=== PATIENT | female | born 1970 | race Caucasian/White ===

== ENCOUNTER 2016-10-14 10:34 | Emergency (ER) | payer BC ==
[~2016-10-14] VITALS: Ht 157.5 cm; Wt 55.8 kg
--- NOTE | 2016-10-14 11:02 | EKG ---
[facility] [address] [place] [address] Test Date: 2016-10-14 Test Time: 10:39:10 Pat Name: CHANA WEN Department: Room: Gender: F [employer]: : 1970 Requested By: David VAUGHAN Order Number: [id number] Reading MD: Ángela Guzman Measurements Intervals [place] Rate: 76 P: 17 UT: 140 QRS: -41 QRSD: 96 T: 54 QT: 410 QTc: 466 Interpretive Statements SINUS RHYTHM LEFT ATRIAL ABNORMALITY LEFT ANTERIOR FASCICULAR BLOCK INCOMPLETE RIGHT BUNDLE BRANCH BLOCK QRS(T) CONTOUR ABNORMALITY CONSISTENT WITH ANTEROLATERAL INFARCT AGE UNDETERMINED RI6.01 Unconfirmed report No previous ECG available for comparison Electronically Signed On 10-16-2016 17:19:48 CDT by Ángela Guzman
[2016-10-14 11:16] LABS: BASO # 0.1 x10^3/uL (0.0-0.2); BASO % 1 % (0-3); EOS % 2 % (0-3); HEMATOCRIT 34.7 % (36.0-47.0); HEMOGLOBIN 11.5 g/dL (12.0-15.5); LYMPH # 1.5 x10^3/uL (1.0-4.8); LYMPH % 14 % (24-48); MEAN CORPUSCULAR HEMOGLOBIN 29 pg (25-35); MEAN CORPUSCULAR HGB CONC 33 g/dL (31-37); MEAN CORPUSCULAR VOLUME 87 fL (79-100); MONO % 5 % (0-9); NEUT % 79 % (31-73); PLATELET COUNT 216 x10^3/uL (140-400); RED BLOOD COUNT 4.02 x10^6/uL (3.50-5.40); RED CELL DISTRIBUTION WIDTH 15.8 % (11.5-14.5); WHITE BLOOD COUNT 10.3 x10^3/uL (4.0-11.0)
--- NOTE | 2016-10-14 11:16 | PHYS DOC ---
Past Medical History Past Medical History: CHF (EF 20-25%), [place], Seizure, Other Additional Past Medical Histor: ANEURSYM BEHIND R EYE,LUPUS Past Surgical History: Other Additional Past Surgical Histo: CARDIAC STENTS X 2 Additional Information: 0.5 PPD Alcohol Use: Occasionally Drug Use: Marijuana Adult General Chief Complaint Chief Complaint: SEIZURE HPI HPI Patient is a 46 year old female who presents by EMS for seizure-like activity witnessed by bystanders at work. She was a standing height when she feel down and had jerking activity that is not described well. She was noted to be confused during EMS transport but made it back to mental baseline by the time she arrived here. She initially stated to EMS that she had a seizure prior, but now that she is at her mental baseline states this was the wrong statement. She states she has never had a seizure before. States she was recently diagnosed 4 days ago with ejection fraction of 20-25% by echocardiogram at [facility]. States they were considering placing a pacer/ICD. 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 She currently denies chest pain, headache, neck pain, vision changes, dizziness, numbness, tingling, weakness, dyspnea, diaphoresis, palpitations, nausea or vomiting, fever or chills, abdominal pain, diarrhea, injury. Review of Systems Review of Systems Constitutional: Denies fever or chills [] Eyes: Denies change in visual acuity, redness, or eye pain [] HENT: Denies nasal congestion or sore throat [] Respiratory: Denies cough or shortness of breath [] Cardiovascular: No additional information not addressed in HPI [] GI: Denies abdominal pain, nausea, vomiting, bloody stools or diarrhea [] : Denies dysuria or hematuria [] Musculoskeletal: Denies back pain or joint pain [] Integument: Denies rash or skin lesions [] Neurologic: Denies headache, focal weakness or sensory changes [] Endocrine: Denies polyuria or polydipsia [] Allergies Allergies Allergies Coded Allergies Type Severity Reaction Last Updated Verified No Known Drug Allergies 10/14/16 No Physical Exam Physical Exam Constitutional: Well developed, well nourished, no acute distress, non-toxic appearance. [] HENT: Normocephalic, atraumatic, bilateral external ears normal, oropharynx moist, nose normal. [] Eyes: PERRLA, EOMI. [] Neck: Normal range of motion, no tenderness, supple, no stridor. [] Cardiovascular:Heart rate regular rhythm [] Lungs & Thorax: Bilateral breath sounds clear to auscultation [] Abdomen: Bowel sounds normal, soft, no tenderness. [] Skin: Warm, dry, no erythema, no rash. [] Back: Normal range of motion, nontender. [] Extremities: No tenderness, ROM intact, no edema. [] Neurologic: Alert and oriented X 3, normal motor function, normal sensory function, no focal deficits noted, cranial nerves II through XII intact. [] Psychologic: Affect normal, judgement normal, mood normal. [] Current Patient Data Vital Signs Vital Signs Date Time Temp Pulse Resp B/P Pulse Ox O2 Delivery O2 Flow Rate FiO2 10/14/16 12:00 72 102/65 98 Room Air 10/14/16 10:44 98 18 98.0 Lab Values Laboratory Tests Test 10/14/16 10:45 10/14/16 12:20 White Blood Count 10.3x10^3/uL (4.0-11.0) Red Blood Count 4.02x10^6/uL (3.50-5.40) Hemoglobin 11.5g/dL (12.0-15.5) L Hematocrit 34.7% (36.0-47.0) L Mean Corpuscular Volume 87fL (79-100) Mean Corpuscular Hemoglobin 29pg (25-35) Mean Corpuscular Hemoglobin Concent 33g/dL (31-37) Red Cell Distribution Width 15.8% (11.5-14.5) H Platelet Count 216x10^3/uL (140-400) Neutrophils (%) (Auto) 79% (31-73) H Lymphocytes (%) (Auto) 14% (24-48) L Monocytes (%) (Auto) 5% (0-9) Eosinophils (%) (Auto) 2% (0-3) Basophils (%) (Auto) 1% (0-3) Neutrophils # (Auto) 8.1x10^3uL (1.8-7.7) H Lymphocytes # (Auto) 1.5x10^3/uL (1.0-4.8) Monocytes # (Auto) 0.5x10^3/uL (0.0-1.1) Eosinophils # (Auto) 0.2x10^3/uL (0.0-0.7) Basophils # (Auto) 0.1x10^3/uL (0.0-0.2) Sodium Level 138mmol/L (136-145) Potassium Level 4.2mmol/L (3.5-5.1) Chloride Level 104mmol/L (98-107) Carbon Dioxide Level 23mmol/L (21-32) Anion Gap 11 (6-14) Blood Urea Nitrogen 9mg/dL (7-20) Creatinine 1.1mg/dL (0.6-1.0) H Estimated GFR (Cockcroft-Gault) 53.7 Glucose Level 98mg/dL (70-99) Calcium Level 9.2mg/dL (8.5-10.1) Troponin I Quantitative < 0.017ng/mL (0.000-0.055) MT-Uxb-G-Type Natriuretic Peptide 2969pg/mL (0-124) H Urine Opiates Screen Neg (NEG) Urine Methadone Screen Neg (NEG) Urine Barbiturates Neg (NEG) Urine Phencyclidine Screen Neg (NEG) Urine Amphetamine/Methamphetamine Neg (NEG) Urine Benzodiazepines Screen Neg (NEG) Urine Cocaine Screen Neg (NEG) Urine Cannabinoids Screen Pos (NEG) Urine Ethyl Alcohol Neg (NEG) Laboratory Tests 10/14/16 10:45 Laboratory Tests 10/14/16 10:45 EKG EKG EKG as interpreted by me showing sinus rhythm with interventricular block, rate 76, WI 140, QTc 466, ST elevations in V3 through V5 with Q waves concerning for old infarct with LV aneurysm vs other Radiology/Procedures Radiology/Procedures Chest xray as interpreted by me with no acute cardiopulmonary disease process Course & Med Decision Making Course & Med Decision Making Pertinent Labs and Imaging studies reviewed. (See chart for details) Workup is largely unremarkable other than EKG with concern of ST changes. Discussed case with Dr. De La Cruz, cardiology, who agrees given her history and lack of active symptoms this is likely an LV aneurysm versus other. We suspect she has had a cardiogenic/arrhythmogenic syncope given her known structural abnormality. Telemetry monitoring while here is unremarkable. Sent signed request to [facility] medical records for old EKG, but it did not come by the time of transfer. She continues to feel at baseline. Discussed she should be admitted for further workup, and she requested transfer to [facility]. where all of her other care happens. Discussed with [facility]. transfer line, Altagracia the warehouse shift supervisor. Altagracia has accepted this patient under the care of Dr. Terry with cardiology consultation. She is transferred to [facility] in stable condition via EMS. Dragon Disclaimer Dragon Disclaimer This electronic medical record was generated, in whole or in part, using a voice recognition dictation system. Departure Departure Impression: Primary Impression: Syncope Additional Impression: Cardiomyopathy Disposition: 05 TRANSFER OTHER ([facility]) Condition: STABLE Problem Qualifiers Primary Impression: Syncope Syncope type: unspecified Qualified Code: R55 - Syncope and collapse Additional Impression: Cardiomyopathy Cardiomyopathy type: unspecified Qualified Code: I42.9 - Cardiomyopathy, unspecified David VAUGHAN MD Oct 14, 2016 11:16
[2016-10-14 11:30] LABS: CALCIUM 9.2 mg/dL (8.5-10.1); CREATININE 1.1 mg/dL (0.6-1.0); GFR 53.7; POTASSIUM 4.2 mmol/L (3.5-5.1)
--- NOTE | 2016-10-14 11:35 | RAD ---
Dictation syncopal episode. Protocol study. A single view of the chest was obtained. No prior imaging is available. The cardiac silhouette is mildly enlarged. There is no gross congestive heart failure. A focal infiltrate in either lung is not seen. There is no pleural fluid or pneumothorax. Bony structures appear grossly IMPRESSION: Mildly enlarged cardiac silhouette. No acute finding apparent in the chest
[2016-10-14 12:38] LABS: BARBITURATES NEG (NEG); BENZODIAZEPINES NEG (NEG); CANNABINOIDS POS (NEG); COCAINE NEG (NEG); METHADONE NEG (NEG); OPIATES NEG (NEG); PHENCYCLIDINE NEG (NEG)
[2016-10-14 12:39] LABS: ETHANOL, URINE NEG (NEG)
[2016-10-14 13:21] VITALS: BP 115/67
== END 2016-10-14 13:31 | disposition short-term general hospital (02) ==
LOC: ER 10:34
DX: R55 Syncope and collapse (principal); I42.9 Cardiomyopathy, unspecified; R56.9 Unspecified convulsions; I50.9 Heart failure, unspecified; I25.2 Old myocardial infarction; M32.9 Systemic lupus erythematosus, unspecified; F12.10 Cannabis abuse, uncomplicated; F17.200 Nicotine dependence, unspecified, uncomplicated; I72.9 Aneurysm of unspecified site; Z95.5 Presence of coronary angioplasty implant and graft
CPT/HCPCS: 36415; 71010; 80048; 80305; 80320; 83880; 84484; 85027; 93005; 99285; G0481